=== PATIENT | male | born 1985 | race Caucasian/White ===

== ENCOUNTER 2016-10-07 07:54 | Emergency (ER) | payer OTHER ==
[~2016-10-07] VITALS: Ht 182.9 cm; Wt 94.5 kg
[2016-10-07 07:58] VITALS: BP 130/82; PULSE 85; RESP 18; O2SAT 99
--- NOTE | 2016-10-07 08:08 | ED.REPORT ---
HPI-Hand Prob/Inj Date of Service Oct 07, 2016 ED Provider: Gloria Holland MD Pt is an otherwise healthy 30 year old male who presents to the ED complaining of a left hand 2nd finger laceration onset prior to arrival. He c/o associated left hand 2nd finger pain and diminished sensation. He denies any other symptoms. Pt reports that he was using a box knife when he accidentally sliced is left 2nd finger. The pt states that his Tdap vaccination is up to date. Nursing Notes Stated Complaint: LEFT HAND LACERATION/L AND I Chief Complaint: Laceration Nursing Notes Reviewed: Yes Allergies: Coded Allergies: No Known Allergies (Unverified , 10/07/16) Scheduled Cephalexin (Cephalexin) 500 Mg Capsule 500 MG PO TID Scheduled PRN oxyCODONE-Acetaminophen 5-325 mg (oxyCODONE-Acetaminophen 5-325 mg) 1 Each Tablet 1-2 TAB PO Q6H PRN PRN For Pain General Time Seen by Provider: 08:05 Chief Complaint Finger injury left Hx Obtained From: Patient Arrived By: Walk-in Onset Occurred: Just prior to arrival Symptom Duration: Since onset Caused by: Accidental Location: Left Hand: : Finger... (Index) Quality: Painful Severity: Current: Moderate Severity: Maximum: Moderate Immunizations: Tetanus up to date Recent Healthcare: No recent doctor visit, No recent hospitalization Similar Sx Previous: No Past Medical History Past Medical History Denies - healthy Past Surgical History Bilateral varicose vein repair Smoking History Current Every Day Smoker Social History Alcohol Use: "Social" Drug Use: THC Other Social History: , Lives with children Ambulatory Status Independent Review of Systems + finger laceration + diminished sensation + finger pain Constitutional: Denies: Fever Complete sys rev & neg: except as marked. Respiratory: Denies: Non-productive cough, Shortness of breath Physical Exam Initial Vital Signs Vital Signs (First) Date Time Temp Pulse Resp B/P Pulse Ox O2 Delivery O2 Flow Rate FiO2 10/07/16 07:58 37.0 85 18 130/82 99 Initial VS: Reviewed Head / Eyes: Atraumatic, Normocephalic Neck: Supple, Full range of motion Respiratory: Breath sounds normal, Clear to auscultation, No respiratory distress Cardiovascular: Regular rate & rhythm, Heart sounds normal, Intact distal pulses Extremities: Vascular intact, Neuro intact Skin: Warm, Dry, No cyanosis Neurologic: Alert, Oriented, Nonfocal Psychiatric: Mood/affect normal, Behavior normal Wrist / Hand: Neurologic intact, Vascular intact 4 cm full thickness laceration on 2nd finger on the left hand with a 4 cm partial thickness laceration superior to that, which did not require sutures. Procedures Laceration Management Laceration Management: 2 facial layers in between muscle bellies. Neurovascularly intact distal to the wound. Time: 08:44 Procedure Performed by: ED physician Consent / Setup / Site Prep: Consent from patient, Time-out performed, Hand hygiene observed, Stand sterile technique Location of Wound: 2nd finger on left hand Wound Length: 4 cm Local Anesthesia: Bupivacaine 0.5% Digit Involved: Index finger left Wound Preparation: Shurclens, Normal saline Irrigation: Copious Foreign Body Explore / Removal: Explored for foreign body (Carefully explored) Repair Skin: Nylon # Sutures - Skin: 7 Suture Technique: Simple Post-Procedure / Complications: Antibiotic oint applied, Dressing applied, No complications, Condition improved, Tolerated procedure well, Patient stable Re-Eval/Medical Decision Source of Hx: Old records Re-Evaluation/Progress #1: Time of Eval: 08:45 Re-Evaluation/Progress Note: Pt rechecked. Performed laceration management on pt with his consent. All questions were answered. Re-Evaluation/Progress #2: Time of Eval: 09:04 Re-Evaluation/Progress Note: Pt rechecked. Informed pt of plan for discharge. Pt understands and agrees with plan for discharge. F/U instructions and RTER warnings given. All questions addressed. Counseled Regarding: Diagnosis, Need for follow-up, When/why to return to ED Discharge & Departure Primary Impression: Finger laceration Encounter type: initial encounter Qualified Code: S61.219A - Laceration without foreign body of unspecified finger without damage to nail, initial encounter Disposition: Home Discharge Condition All VS Reviewed: Yes Condition: Stable Patient Instructions: Finger Laceration (ED) Additional Instructions: Because this is her hand and he did work in a technically "unclean" environment , I am going to suggest 7 days of Keflex to prevent infection. Please use 600 mg of ibuprofen as needed every 6 hours for pain. In this first 48 hours he can use 1-2 Percocet for severe pain. Use the small splint and bell immobilization to help with pain control and healing as the wound does cross the joint. He will need to use this at work for the first week and then use it as needed for comfort after that I am going to suggest you do not return to work today. And for this first week you can return to work but will need to have accommodations for limited use of your left hand This is going to heal much lint cleaner and hopefully cause much less pain than the wound on your right wrist. Good luck Have the stitches removed in 14 days at the Emergency Department. Take Percocet 1-2 every 6 hours as needed for the pain. Do not drive or drink alcohol or consume acetaminophen while taking Percocet. Return to the Emergency Department for any new or worsening symptoms. Referrals: [facility] Scribe Attestation Portions of this note were transcribed by Krystin Oscar. I, Dr. Holland personally performed the history, physical exam and medical decision-making; I reviewed and confirmed the accuracy of the information in the transcribed note. Signed by: Judah Colon, 10/07/16 and 08:40. copies to: [facility] Gloria Holland MD Oct 07, 2016 08:08 Krystin Hammond Oct 07, 2016 08:16
[2016-10-07] MEDS ORDERED: OXYC1TAB24 PO (09:20)
[2016-10-07] MEDS ORDERED: CEPH500C PO (09:20)
[2016-10-07 09:44] VITALS: BP 143/99; PULSE 75; O2SAT 98
== END 2016-10-07 09:42 | disposition home or self-care (01) ==
LOC: SED 07:54
DX: S61.211A Laceration without foreign body of left index finger without damage to nail, initial encounter (principal); W26.8XXA Contact with other sharp object(s), not elsewhere classified, initial encounter; Y93.89 Activity, other specified; Y92.69 Other specified industrial and construction area as the place of occurrence of the external cause; Y99.0 Civilian activity done for income or pay; F17.200 Nicotine dependence, unspecified, uncomplicated; Z98.890 Other specified postprocedural states

== ENCOUNTER 2016-10-22 07:10 | Emergency (ER) | payer OTHER ==
[~2016-10-22] VITALS: Ht 182.9 cm; Wt 94.1 kg
[~2016-10-22 07:10] MED LIST: CEPH500C PO; OXYC1TAB24 PO
--- NOTE | 2016-10-22 07:15 | ED.REPORT ---
[facility] W/B/S Date of Service Oct 22, 2016 ED Provider: All Adams Patient is a 30 year old male who presents to the ED for a wound check of a laceration over his L index finger. He was seen in the department 2 weeks ago for his laceration repair but his sutures have since unraveled. He complains of mild numbness over the deepest part of the laceration. He denies fevers, chills , bleeding, decreased ROM, redness, swelling, or any other symptoms. Nursing Notes Stated Complaint: RE-CHECK CUT ON LT HAND Nursing Notes Reviewed: Yes Allergies: Coded Allergies: No Known Allergies (Unverified , 10/07/16) Scheduled Cephalexin (Cephalexin) 500 Mg Capsule 500 MG PO TID Scheduled PRN oxyCODONE-Acetaminophen 5-325 mg (oxyCODONE-Acetaminophen 5-325 mg) 1 Each Tablet 1-2 TAB PO Q6H PRN PRN For Pain General Time Seen by Provider: 07:41 Chief Complaint Wound check Wound / Injury Type: Laceration Hx Obtained From: Patient Arrived By: Walk-in Onset Occurred: More than a week ago... (2 weeks) Recent Healthcare: Recent doctor visit Past Medical History Past Medical History Denies - healthy Past Surgical History Bilateral varicose vein repair Smoking History Current Every Day Smoker Social History Alcohol Use: "Social" Drug Use: THC Other Social History: , Lives with children Ambulatory Status Independent Review of Systems Review of Systems Note: denies bleeding, decreased ROM, redness, swelling Constitutional: Denies: Chills, Fever Complete sys rev & neg: except as marked. Neurologic: Reports: Numbness Physical Exam Initial Vital Signs Vital Signs (First) Date Time Temp Pulse Resp B/P Pulse Ox O2 Delivery O2 Flow Rate FiO2 10/22/16 07:19 36.2 78 16 125/90 99 Initial VS: Reviewed, Vital signs normal General/Constitutional: Well-developed, Well-nourished Head / Eyes: Atraumatic, Normocephalic Neck: Full range of motion Respiratory: No respiratory distress Cardiovascular: Intact distal pulses Extremities: Vascular intact, Neuro intact, No swelling, No tenderness Neurologic: Alert, Oriented, Nonfocal Psychiatric: Mood/affect normal, Behavior normal, Normal thought content Skin: Color NL, Warm, Dry, Intact Rash / Lesion Notes: Well healed laceration over the L index finger Wrist / Hand: Inspection NL, Full range of motion, No swelling, No erythema, Non-tender, No deformity, Neurologic intact, Vascular intact, No ligamentous injury, Tendon function NL Re-Eval/Medical Decision Re-Evaluation/Progress : Time of Eval: 07:45 Re-Evaluation/Progress Note: Discussed plan for discharge. Patient understands and agrees with plan. All questions addressed at this time. Counseled Regarding: Diagnosis, Need for follow-up, When/why to return to ED Discharge & Departure Impression: Primary Impression: Finger laceration Encounter type: subsequent encounter Qualified Code: S61.219D - Laceration without foreign body of unspecified finger without damage to nail, subsequent encounter Disposition: Home Discharge Condition All VS Reviewed: Yes Condition: Stable Additional Instructions: Your laceration looks great! You are cleared for full duty. Referrals: [facility] (PCP) Scribe Attestation Portions of this note were transcribed by Pete Young. I, Dr. Adams personally performed the history, physical exam and medical decision-making; I reviewed and confirmed the accuracy of the information in the transcribed note. Signed by: Judah Riley, 10/22/16 at 0800 All Adams DO Oct 22, 2016 07:15 PETE YOUNG Oct 22, 2016 07:59
[2016-10-22 07:19] VITALS: BP 125/90; PULSE 78; RESP 16; O2SAT 99
== END 2016-10-22 07:54 | disposition home or self-care (01) ==
LOC: SED 07:10
DX: S61.211D Laceration without foreign body of left index finger without damage to nail, subsequent encounter (principal); Y28.8XXD Contact with other sharp object, undetermined intent, subsequent encounter; Y93.9 Activity, unspecified; Y92.9 Unspecified place or not applicable; Y99.0 Civilian activity done for income or pay; R20.0 Anesthesia of skin; F17.200 Nicotine dependence, unspecified, uncomplicated